=== PATIENT | male | born 1980 | race Caucasian/White ===

== ENCOUNTER 2016-09-27 17:56 | Emergency (ER) | payer SELFPAY ==
[~2016-09-27] VITALS: Ht 180.3 cm; Wt 133.8 kg
[2016-09-27 18:16] VITALS: BP 142/88
== END 2016-09-27 18:45 | disposition left against medical advice (07) ==
LOC: EME 17:56
DX: T40.1X1A Poisoning by heroin, accidental (unintentional), initial encounter (principal); F17.200 Nicotine dependence, unspecified, uncomplicated
CPT/HCPCS: 93005; 99281; 99284